=== PATIENT | female | born 1995 | race African-American/Black ===

== ENCOUNTER 2019-08-12 12:37 | Emergency (ER) | payer OTHER, SELFPAY | END 2019-08-12 13:05 | disposition home or self-care (01) | LOC: ERS 12:37 | DX: J45.901 Unspecified asthma with (acute) exacerbation (principal); D64.9 Anemia, unspecified | CPT/HCPCS: 99284 ==

== ENCOUNTER 2021-03-05 11:02 | Emergency (ER) | payer OTHER ==
[2021-03-06 00:36] LABS: SARS-CoV-2 PCR by NAA DETECTED (NotDetected)
== END 2021-03-05 12:25 | disposition home or self-care (01) ==
LOC: ERS 11:02
DX: U07.1 COVID-19 (principal); J12.82 Pneumonia due to coronavirus disease 2019; J45.909 Unspecified asthma, uncomplicated; D64.9 Anemia, unspecified; F17.210 Nicotine dependence, cigarettes, uncomplicated
CPT/HCPCS: 71045; U0003; U0005